=== PATIENT | male | born 1960 | race Caucasian/White ===

== ENCOUNTER 2021-04-29 14:58 | Outpatient (CLI) | payer MEDICARE, OTHER ==
[~2021-04-29 14:58] MED LIST: ATEN25TA PO; GLYB1.252 PO; LISI2.5T PO; METF500T17 PO; SIMV5TAB14 PO
[2021-04-29 16:16] LABS: BASOPHILS % (AUTO) 1 % (0-1); EOSINOPHILS % (AUTO) 3 % (1-7); LYMPHOCYTES % (AUTO) 40 % (22-44); MEAN CORPUSCULAR HEMOGLOBIN 31.5 pg (27.5-34.5); MEAN CORPUSCULAR HGB CONC 34.2 g/dL (33.2-36.2); MONOCYTES % (AUTO) 7 % (2-9); NEUTROPHILS % (AUTO) 50 % (42-75); PLATELET COUNT 246 x10^3/uL (130-400); RED BLOOD COUNT 5.48 x10^6/uL (4.38-5.82); RED CELL DISTRIBUTION WIDTH 13.2 % (9.4-14.8)
[2021-04-29 16:25] LABS: ALBUMIN 3.9 g/dL (3.4-5.0); ANION GAP 9 mmol/L (5-15); CALCIUM 9.4 mg/dL (8.5-10.1); CHLORIDE 104 mmol/L (98-107)
[2021-04-29 16:26] LABS: INTERNATIONAL NORMALIZED RATIO 0.95 (0.93-1.1); PROTHROMBIN TIME 10.2 Seconds (9.6-11.5)
[2021-04-29 16:30] LABS: ALANINE AMINOTRANSFERASE 36 U/L (12-78); ALKALINE PHOSPHATASE 74 U/L (45-117); BILIRUBIN,TOTAL 0.6 mg/dL (0.2-1.0); TOTAL PROTEIN 7.7 g/dL (6.4-8.2)
[2021-04-29] MEDS ORDERED: ATOR20TA37 PO (16:44)
[2021-04-29] MEDS ORDERED: HYDR-3237 PO (16:44)
[2021-04-29] MEDS ORDERED: AMLO-211 PO (16:44)
[2021-04-29] MEDS ORDERED: SIMV40TA20 PO (16:44)
[2021-04-29] MEDS ORDERED: GLYB5TAB3 PO (16:44)
[2021-04-29] MEDS ORDERED: ATEN50TA41 PO (16:44)
[2021-04-29] MEDS ORDERED: METF10007 PO (16:44)
[2021-04-29] MEDS ORDERED: LISI-170 PO (16:44)
[2021-04-29 17:13] LABS: MICROSCOPIC NOT IND
== END 2021-04-29 23:59 | disposition home or self-care (01) ==
LOC: STAR 14:58
PROVIDERS: ATTEND Neurological Surgery
DX: Z01.810 Encounter for preprocedural cardiovascular examination (principal); Z01.811 Encounter for preprocedural respiratory examination; Z01.812 Encounter for preprocedural laboratory examination; M54.5 Low back pain; R79.1 Abnormal coagulation profile; R82.90 Unspecified abnormal findings in urine; R94.31 Abnormal electrocardiogram [ECG] [EKG]; M51.35 Other intervertebral disc degeneration, thoracolumbar region; J98.6 Disorders of diaphragm
CPT/HCPCS: 36415; 71046; 72110; 80053; 81003; 83036; 85025; 85610; 85730; 93005

== ENCOUNTER → 2021-05-03 | Outpatient (CLI) | payer MEDICARE, OTHER ==
[~2021-05-03] MED LIST changes: +AMLO-211 PO; +ATEN50TA41 PO; +ATOR20TA37 PO; +GLYB5TAB3 PO; +HYDR-3237 PO; +LISI-170 PO; +METF10007 PO; +SIMV40TA20 PO
[2021-05-03 09:05] LABS: ANION GAP 6 mmol/L (5-15); CALCIUM 9.1 mg/dL (8.5-10.1); CHLORIDE 107 mmol/L (98-107); CREATININE 1.05 mg/dL (0.7-1.3)
== END | disposition home or self-care (01) ==
LOC: STAR 08:25
PROVIDERS: ATTEND Neurological Surgery
DX: Z01.812 Encounter for preprocedural laboratory examination (principal); Z20.822 Contact with and (suspected) exposure to COVID-19
CPT/HCPCS: 36415; 80048; U0003; U0005